=== PATIENT | male | born 1990 | race Caucasian/White ===

== ENCOUNTER 2024-01-24 22:20 | Emergency (ER) | payer OTHER ==
[~2024-01-24] VITALS: Ht 177.8 cm; Wt 108.9 kg
[2024-01-24 22:31] VITALS: BP_SYST 146; PULSE 89; RESP 20; TEMP 98; O2SAT 97
[2024-01-24] MEDS ORDERED: OFLO5DRO6 LEFT EYE (22:52)
[2024-01-24] MEDS ORDERED: KETO5DRO85 LEFT EYE (22:52)
[2024-01-24 22:59] VITALS: BP_SYST 146; PULSE 89; RESP 20; TEMP 98; O2SAT 97
== END 2024-01-24 22:58 | disposition home or self-care (01) ==
LOC: SED 22:20
DX: S05.02XA Injury of conjunctiva and corneal abrasion without foreign body, left eye, initial encounter (principal); Z79.899 Other long term (current) drug therapy; Z79.2 Long term (current) use of antibiotics; X58.XXXA Exposure to other specified factors, initial encounter; Y93.89 Activity, other specified; Y92.89 Other specified places as the place of occurrence of the external cause; Y99.8 Other external cause status
CPT/HCPCS: 99283